=== PATIENT | male | born 1955 | race African-American/Black ===

== ENCOUNTER → 2022-04-19 | Outpatient (CLI) | payer MEDICARE | END | disposition home or self-care (01) | LOC: US 07:18 | PROVIDERS: ATTEND Internal Medicine Gastroenterology | DX: R16.0 Hepatomegaly, not elsewhere classified (principal); N28.1 Cyst of kidney, acquired; I10 Essential (primary) hypertension; D64.9 Anemia, unspecified | CPT/HCPCS: 71046; 76700 ==

== ENCOUNTER → 2022-10-04 | Outpatient (CLI) | payer MEDICARE, MEDICAID ==
[~2022-10-04] MED LIST: IOHEXOL-300 100 ML BOTTLE ONE
== END | disposition home or self-care (01) ==
LOC: CT 10:54
PROVIDERS: ATTEND Internal Medicine Gastroenterology
DX: D49.512 Neoplasm of unspecified behavior of left kidney (principal); N40.0 Benign prostatic hyperplasia without lower urinary tract symptoms; M47.816 Spondylosis without myelopathy or radiculopathy, lumbar region; M48.061 Spinal stenosis, lumbar region without neurogenic claudication; M24.28 Disorder of ligament, vertebrae
CPT/HCPCS: 74178; Q9967

== ENCOUNTER → 2023-07-04 | Outpatient (CLI) | payer MEDICARE, MEDICAID ==
[~2023-07-04] MED LIST changes: +BARIUM SULFATE 450ML ORAL SUSP ONE
== END | disposition home or self-care (01) ==
LOC: CT 08:26
PROVIDERS: ATTEND Internal Medicine Gastroenterology
DX: N28.1 Cyst of kidney, acquired (principal); K59.00 Constipation, unspecified
CPT/HCPCS: 74178; Q9967